=== PATIENT | male | born 1980 | race African-American/Black ===

== ENCOUNTER → 2020-02-17 | Outpatient (CLI) | payer OTHER | LOC: M.ULTRA 08:58 | PROVIDERS: ATTEND Nurse Practitioner Family | DX: R36.0 Urethral discharge without blood (principal) ==

== ENCOUNTER → 2021-03-21 | Outpatient (CLI) | payer OTHER | LOC: M.CT 08:27 | PROVIDERS: ATTEND Nurse Practitioner Family | DX: Z13.6 Encounter for screening for cardiovascular disorders (principal) ==